=== PATIENT | female | born 1980 | race Two or more races ===

== ENCOUNTER 2018-10-06 09:41 | Inpatient (IN) | payer SELFPAY ==
[~2018-10-06] VITALS: Ht 170.2 cm; Wt 112.5 kg
[2018-10-06] MEDS ORDERED: LACTATED RINGER'S 1,000 ML IV SCH (09:55)
[2018-10-06] MEDS ORDERED: MISOPROSTOL 200 MCG TAB PR PRN ×2 (10:00→16:30)
[2018-10-06] MEDS ORDERED: CEFAZOLIN 2 GM/50 ML (PMX) 50 ML IVPB SCH (10:00)
[2018-10-06] MEDS ORDERED: METHYLERGONOVINE 0.2 MG INJ IM PRN ×2 (10:00→16:30)
[2018-10-06] MEDS ORDERED: OXYTOCIN 30 UNITS/LR 500 ML IV PRN ×2 (10:00→16:30)
[2018-10-06] MEDS ORDERED: CARBOPROST 250 MCG INJ IM PRN ×2 (10:00→16:30)
[2018-10-06 10:05] VITALS: BP 130/65; PULSE 78; RESP 17; Ht 170.2 cm; Wt 112.5 kg
--- NOTE | 2018-10-06 11:11 | PREAC ---
Date/Time of Note Date/Time of Note DATE: 10/06/18 TIME: 11:10 Anesthesia Eval and Record Evaluation Time Pre-Procedure Interview DATE: 10/06/18 TIME: 11:10 Age 38 Sex female NPO: 8 hrs Preoperative diagnosis intrauterine Planned procedure repeat c section Past Medical History Past Medical History: Includes : : (4), Para: (2), Gestational age: (38.5) Surgery & Anesthesia Issues No known issue Meds Anticoagulation: No Beta Roman within 24 hr: No Reason Beta Roman not given: Pt. not on B-Roman Current Medications Lactated Ringer's 1,000 ml @ 125 mls/hr Q8H IV Last administered on 10/06/18at 10:26; Admin Dose 125 MLS/HR; Start 10/06/18 at 09:55 Cefazolin Sodium/ Dextrose 50 ml @ 100 mls/hr ONCE IVPB ; Start 10/06/18 at 10:00 Oxytocin/Lactated Ringer's 500 ml @ 0 mls/hr ONCE PRN IV .VAGINAL BLEEDING; Start 10/06/18 at 10:00 Methylergonovine Maleate (Methergine) 0.2 mg ONCE PRN IM .VAGINAL BLEEDING; Start 10/06/18 at 10:00 Carboprost Tromethamine (Hemabate) 250 mcg ONCE PRN IM .VAGINAL BLEEDING; Start 10/06/18 at 10:00 Misoprostol (Cytotec) 1,000 mcg ONCE PRN MO .VAGINAL BLEEDING; Start 10/06/18 at 10:00 Meds reviewed: Yes Allergies Coded Allergies: No Known Drug Allergies (Verified Allergy, Unknown, 10/06/18) Allergies Reviewed: Yes Labs/Studies Labs Reviewed: Reviewed by anesthesiologist Result Diagram: 10/06/18 1030 Laboratory Tests 10/06/18 10:30 Blood Bank Test 10/06/18 10:30 Blood Type O POSITIVE Rh Immune Globulin Candidate NO test: N/A Pre-procedure Exam Last vitals Vital Signs Date Temp Pulse Resp B/P (MAP) Pulse Ox O2 O2 Flow FiO2 Time Delivery Rate 10/06/18 98.6 78 17 130/65 10:05 (86) Airway: Adequate mouth opening, Adequate thyromental dist Mallampati: Mallampati II Teeth: Normal Lung: Normal Heart: Normal ASA Physical Status ASA physical status: 2 Emergency: None Planned Anesthetic Neuraxial: Spinal Planned Pain Management Sub-arachniod narcotics, Parenteral pain med Pre-operative Attestations Prior to commencing anesthesia and surgery, the patient was re-evaluated, there was verification of: *The patient's identity *The results of appropriate recent lab work and preoperative vital signs *The above evaluation not changing prior to induction *Anesthetic plan, risk benefits, alternative and complications discussed with patient/family; questions answered; patient/family understands, accepts and wishes to proceed. ERICK PASTRANA MD Oct 06, 2018 11:11
[2018-10-06] MEDS ORDERED: LACTATED RINGER'S 1,000 ML IV ONE (11:13)
[2018-10-06] MEDS ORDERED: CITRIC ACID/NA CITRATE 30 ML CUP PO ONE (11:30)
[2018-10-06] MEDS ORDERED: METOCLOPRAMIDE 10 MG INJ IV ONE (11:30)
[2018-10-06] MEDS ORDERED: FAMOTIDINE 20 MG INJ IV ONE (11:30)
[2018-10-06] MEDS ORDERED: morphine SULFATE/PF (10 MG/10 ML) INJ ONE (13:10)
--- NOTE | 2018-10-06 13:25 | OPR ---
Operative Report Planned Procedure Procedure date Oct 06, 2018 Procedure(s) Repeat low transverse . Performed by see signature line Manufacturing Quality Inspector: KEVIN KHANNA M.D. Anesthesiologist: ERICK PASTRANA MD Pre-procedure diagnosis IUP at 38w 5d. Severe incisional pain. Mild PIH. Nausea/vomiting. [id number] Anesthesia Type: [id number] spinal Post-Procedure Post-procedure diagnosis Same. Findings Viable baby boy weighing 3655 grams or 8# 1 oz, 20" long, and with Apgars of 8/9/9. Estimated Blood Loss: 400 - 500 mls Specimen(s) none Grafts/Implant(s) none Complication(s) none Pt Condition post procedure: stable Disposition: PACU Procedure Description Under satisfactory spinal anesthesia, the patient was prepped and draped and placed in a supine position, tilted to the left. Pfannenstiel incision was made removing the old scar, and carried through the subcutaneous tissue. Bleeders brought under control with electrocautery. Fascia incised to the length of the incision. Rectus muscles from the fascia, divided midline. Peritoneum exposed, entered through a transverse incision. Transverse incision was made in the lower segment of the uterus. Amniotic sac ruptured. Clear amniotic fluid noted. The head was easily delivered with gentle fundal pressure. The mouth and nares were bulb suctioned. The rest of the baby was then easily delivered. The cord was doubly clamped and cut. The baby was brought to the warmer and the team for immediate attention. The placenta was delivered manually intact. Uterine cavity was cleaned with wet sponge and drainage established. Uterus closed in 2 layers using #1 chromic in continuous fashion. Peritoneal cavity irrigated with warm saline. Sponge, needle and instrument count reported to be correct. Abdominal peritoneum closed with 2-0 Chromic continuously. Rectus muscle approximated with the same suture. Fascia closed with 0-Vicryl. The subcutaneous tissue was irrigated and closed with 2-0 Chromic and skin was closed with 3-0 Monocryl in a subcuticular stitch. Steristrips with Mastosol were placed. Estimated blood loss 500 mL. Urine was clear MARU HAWLEY MD Oct 06, 2018 13:25
--- NOTE | 2018-10-06 13:31 | HP ---
Date/Time of Note Date/Time of Note DATE: 10/06/18 TIME: 13:26 OB - History Hx of Present Free Text/Dictation 38 y.o. A1 with an IUP at 38w 5d was planning on having a in 2 days but came in to the office today with complaints of nausea and vomiting x 4 days, severe incisional pain, and her blood pressure was found to be elevated to 130/90 and overall she did not appear well. I sent her to [facility] for delivery today. Estimated Due Date: Oct 15, 2018 : 4 Para: 2 Spontaneous : 1 Care: Good Care Ultrasounds: Normal mid trimester US Obstetrical Complications: None Medical Complications: None Other Concerns: PMHx: none. PSHx: x 2 2011, 2013. NKDA Past Family/Social History * Past Medical, Surgical, Family and Obstetric Histories reviewed from chart. Blood Type: O+ Rubella: immune RPR/VDRL: Negative GBS Status: Negative HBsAG: Negative OB Admission Exam Vital Signs Vital Signs Vital Signs Date Temp Pulse Resp B/P (MAP) Pulse Ox O2 O2 Flow FiO2 Time Delivery Rate 10/06/18 98.6 78 17 130/65 10:05 (86) Physical Exam HEENT: WNL Heart: Rhythm Normal Lungs: Clear Abdomen: WNL Extremities: Normal Reflexes: Normal Cervical Dilatation: None (deferred) Membranes: Intact Heart Rate: 130's Accelerations: Accelerations Present Decelerations: No Decelerations Varibility: Marked Contractions on Admission: None Last 72 hours Lab Results CBC & BMP 10/06/18 10:30 OB Assessment/Plan Reason for admission: section Other Assessment: Mild PIH. Severe incisional pain. Nausea and vomiting x 4 days. Plan: Section MARU HAWLEY MD Oct 06, 2018 13:31
[2018-10-06] MEDS ORDERED: ONDANSETRON 4 MG INJ ONE (13:44)
[2018-10-06] MEDS ORDERED: MIDAZOLAM 1 MG/ML 2 ML INJ ONE (13:54)
[2018-10-06] MEDS ORDERED: DIPHENHYDRAMINE 50 MG INJ IV PRN ×2 (14:00→17:00)
[2018-10-06] MEDS ORDERED: ONDANSETRON 4 MG INJ IV PRN ×2 (14:00→17:00)
[2018-10-06] MEDS ORDERED: EPHEDrine SULFATE 50 MG/5 ML SYG IV PRN (14:00)
[2018-10-06] MEDS ORDERED: FENTAnyl 50 MCG/ML VIAL IV PRN ×3 (14:00)
[2018-10-06] MEDS ORDERED: KETOROLAC 30 MG INJ IV PRN (14:00)
[2018-10-06] MEDS ORDERED: hydrALAzine 20 MG INJ IV PRN (14:00)
[2018-10-06] MEDS ORDERED: PROCHLORPERAZINE 10 MG INJ IV PRN (14:00)
[2018-10-06] MEDS ORDERED: LABETALOL HCL 20MG INJ IV PRN (14:00)
[2018-10-06] MEDS ORDERED: HYDROmorphONE 1 MG/5 ML IV SYRINGE IV PRN ×3 (14:00)
[2018-10-06] MEDS ORDERED: MEPERIDINE 25 MG INJ IV PRN (14:00)
[2018-10-06] MEDS ORDERED: OXYTOCIN 30 UNITS/LR 500 ML IV ONE (14:07)
--- NOTE | 2018-10-06 14:38 | PAC ---
Date/Time of Note Date/Time of Note DATE: 10/06/18 TIME: 14:37 Post-Anesthesia Notes Post-Anesthesia Note Last documented vital signs Vital Signs Date Temp Pulse Resp B/P (MAP) Pulse Ox O2 O2 Flow FiO2 Time Delivery Rate 10/06/18 98.6 78 17 130/65 10:05 (86) Activity: WNL Respiratory function: WNL Cardiovascular function: WNL Mental status: Baseline Pain reasonably controlled: Yes Hydration appropriate: Yes Nausea/Vomiting absent: Yes Comments BP: 122/65 HR: 72 RR: 15 T: 98 SaO2: 100% ERICK PASTRANA MD Oct 06, 2018 14:38
[2018-10-06] MEDS ORDERED: OXYTOCIN 30 UNITS/LR 500 ML IV SCH (16:29)
[2018-10-06] MEDS ORDERED: LANOLIN HPA 1 PKT TOP PRN (16:30)
[2018-10-06] MEDS ORDERED: OXYCODONE/ACETAMINOPHEN (5/325) TAB PO PRN (16:30)
[2018-10-06] MEDS ORDERED: NACL 0.9% 3 ML SYG IV SCH (16:30)
[2018-10-06] MEDS ORDERED: HYDROmorphONE 0.5 MG/0.5 ML SYG IV PRN ×2 (17:00)
[2018-10-06] MEDS ORDERED: ZOLPIDEM 5 MG TAB PO PRN (17:00)
[2018-10-06] MEDS ORDERED: NALOXONE (0.4 MG/ML) INJ IV PRN (17:00)
[2018-10-06 17:05] VITALS: BP 141/84; PULSE 81; RESP 20
[2018-10-06 18:05] VITALS: BP 130/70; PULSE 62; RESP 20
[2018-10-06] MEDS: KETOROLAC 30 MG INJ IV PRN (18:05)
[2018-10-06 20:25] VITALS: BP 130/81; PULSE 76; RESP 18
[2018-10-06] MEDS ORDERED: IBUPROFEN 800 MG TAB PO SCH (22:00)
[2018-10-07] VITALS: BP 113/74; PULSE 76; RESP 18
[2018-10-07 03:20] VITALS: BP 120/76; PULSE 88; RESP 20
[2018-10-07] MEDS: LACTATED RINGER'S 1,000 ML IV SCH ×2 (03:52→07:00)
[2018-10-07] MEDS: KETOROLAC 30 MG INJ IV PRN ×2 (05:37→11:36)
[2018-10-07 08:00] VITALS: BP 130/78; PULSE 79; RESP 18
[2018-10-07 11:53] VITALS: BP 138/75; PULSE 80; RESP 18
[2018-10-07 16:21] VITALS: BP 123/64; PULSE 77; RESP 18
[2018-10-07] MEDS: IBUPROFEN 800 MG TAB PO SCH (17:28)
[2018-10-07 20:10] VITALS: BP 130/64; PULSE 90; RESP 18
--- NOTE | 2018-10-08 00:24 | QN ---
Documentation Comment POD #1 Pt feels well and is with excellent pain control. Eating and voiding w/o difficulty. well. T=98.0 BP 130/64 Fundus, firm, at umbilicus. Dressing clean, dry, and intact. Lochia minimal. Ext NT, 1+ edema. WBC 7.3 Hgb 11 Plts 172K P: Continue care. Abdominal binder ordered, per pt request. MARU HAWLEY MD Oct 08, 2018 00:23
[2018-10-08] MEDS: OXYCODONE/ACETAMINOPHEN (5/325) TAB PO PRN ×3 (00:26→21:02)
[2018-10-08] MEDS: IBUPROFEN 800 MG TAB PO SCH ×4 (01:03→22:40)
[2018-10-08 03:55] VITALS: PULSE 18
[2018-10-08 08:20] VITALS: BP 122/56; PULSE 75; RESP 18
--- NOTE | 2018-10-08 14:02 | DS ---
Date/Time of Note Date/Time of Note DATE: 10/08/18 TIME: 14:00 Obstetrical Discharge Record Final Diagnosis Final Diagnosis: Term delivered Other Final Diagnosis Mild PIH. Severe incisional pain. Section Section: Repeat Complications Preg induced Hypertension (mild) Augmentation: No Induction: No Condition on Discharge Physical Assessment Last Vitals: T= 98.8 BP 122/56 Voiding: Yes Bowel Movement: Yes Breast: Filling Fundus: Firm Abdomen and Incision: Clean, dry, intact. Calf Tenderness: No Patient Condition: Good MARU HAWLEY MD Oct 08, 2018 14:02
[2018-10-08 15:51] VITALS: BP 125/68; PULSE 76; RESP 16
--- NOTE | 2018-10-08 19:48 | PD.PPDC ---
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 Discharge Instruction Condition [id number] Patient Condition: Gvvpv1e Good Diet [id number] Diet: Wankg2w Resume Regular Diet Activity/Restrictions [id number] Activity: Yegiw6i Bedrest May be up to bathroom May be up for meals May Shower [id number] Restrictions: Arppj5s No Exercising No Lifting No Driving Minimize Walking Minimize Stair-climbing No Sexual Activity Nothing in the Vagina No [place] No Tampons, douche Wound/Drain Care Instructions [id number] Wound/Drain Care [id number] Remove Steri Strips in 2 Instructions: weeks Keep clean and dry Follow-up Follow-up with Physician: 2, Week/Weeks Return to clinic for [id number] [employer] SUPERVISOR Instructions: Uhauz5n Fever greater than 101 Chills Worsening abdominal pain Excessive Vaginal Bleeding [id number] OB Instructions: Pqvck8d Breast Tenderness Depression Ioryy6Rg Surgical Instructions: Dkgfl5o Incisional Drainage Incisional Redness MARU HAWLEY MD Oct 08, 2018 19:48
[2018-10-08] MEDS ORDERED: MAGNESIUM CITRATE 300 ML BTL PO ONE (20:00)
[2018-10-08 20:20] VITALS: BP 134/67; PULSE 83; RESP 18
[2018-10-09 04:15] VITALS: BP 122/64; PULSE 66; RESP 18
[2018-10-09] MEDS: IBUPROFEN 800 MG TAB PO SCH (06:04)
[2018-10-09] MEDS: OXYCODONE/ACETAMINOPHEN (5/325) TAB PO PRN ×2 (06:57→11:25)
[2018-10-09] MEDS ORDERED: DIPHTH/TET/ACEL PERTUSS (ADULT) 0.5 ML VIAL IM* ONE (09:00)
== END 2018-10-09 12:35 | disposition home or self-care (01) | DRG 788 ==
LOC: L-D 09:41 → PP1 17:10 → EDSTATUS 10-08 09:39
PROVIDERS: ADMIT Obstetrics & Gynecology; ATTEND Obstetrics & Gynecology
PROC: 10D00Z1 Extraction of Products of Conception, Low, Open Approach (ICD-10-PCS; principal; 2018-10-06 12:45)
DX: O13.4 Gestational [pregnancy-induced] hypertension without significant proteinuria, complicating childbirth (principal); O34.211 Maternal care for low transverse scar from previous cesarean delivery; Z3A.38 38 weeks gestation of pregnancy; Z37.0 Single live birth; Z23 Encounter for immunization
CPT/HCPCS: 85025; 85610; 85730; 86592; 86850; 86900; 86901; 90686; 99464; J0690; J1885; J2250; J2274; J2405; J2590; J2765; J7120